=== PATIENT | male | born 1960 | race Caucasian/White ===

== ENCOUNTER 2023-08-17 09:21 | Emergency (ER) | payer BC ==
[2023-08-17 09:59] LABS: APPEARANCE,URINE SLIGHTLY CLOUDY (CLEAR); BASOPHILS ABSOLUTE AUTO 0.03 10^3/uL (0.00-0.50); BASOPHILS PERCENT AUTO 0.3 % (0-1); COLOR,URINE DARK YELLOW (YELLOW); EOSINOPHILS ABSOLUTE AUTO 0.24 10^3/uL (0.00-1.50); EOSINOPHILS PERCENT AUTO 2.3 % (0-6); GLUCOSE,URINE NEGATIVE (NEGATIVE); HEMATOCRIT 43.2 % (42.0-52.0); HEMOGLOBIN 15.3 g/dL (14.0-18.0); IMMATURE GRAN ABSOLUTE AUTO 0.09 10^3/uL (0.00-0.49); IMMATURE GRAN PERCENT AUTO 0.9 % (0.0-4.9); KETONES,URINE TRACE mg/dL (NEGATIVE); LEUKOCYTE ESTERASE,URINE NEGATIVE (NEGATIVE); LYMPHOCYTES PERCENT AUTO 15.4 % (24-44); MEAN CORPUSCULAR HEMOGLOBIN 33.8 pg (27.0-32.0); MEAN CORPUSCULAR HGB CONC 35.4 g/dL (32.0-36.0); MEAN CORPUSCULAR VOLUME 95.6 fL (83.0-97.0); MONOCYTES ABSOLUTE AUTO 0.55 10^3/uL (0.00-1.50); MONOCYTES PERCENT AUTO 5.3 % (0-10); NEUTROPHILS ABSOLUTE AUTO 7.86 x10^3/uL (1.80-8.00); NEUTROPHILS PERCENT AUTO 75.8 % (41-71); NITRITE,URINE NEGATIVE (NEGATIVE); OCCULT BLOOD,URINE NEGATIVE (NEGATIVE); PH,URINE 5.5 (4.5-8.0); PLATELET COUNT,PLT 102 10^3/uL (150-400); PROTEIN,URINE 30 mg/dL (NEGATIVE); RED BLOOD CELL COUNT 4.52 x10^6/uL (4.50-6.00); WHITE BLOOD CELL COUNT,WBC 10.4 10^3/uL (4.0-11.0)
[2023-08-17 10:08] LABS: BACTERIA,URINE NOT SEEN /HPF (NOT SEEN); BARBITURATES,URINE NEGATIVE (NEGATIVE); BENZODIAZEPINE,URINE NEGATIVE (NEGATIVE); BILIRUBIN,URINE MODERATE (NEGATIVE); MDMA (ECSTASY), URINE NEGATIVE (NEGATIVE); METHADONE,URINE NEGATIVE (NEGATIVE); METHAMPHETAMINES,URINE NEGATIVE (NEGATIVE); OPIATES,URINE NEGATIVE (NEGATIVE); PHENCYCLIDINE,URINE NEGATIVE (NEGATIVE); RBC,URINE 0-5 /HPF (0-5); SQUAMOUS EPITHELIAL CELLS,UR OCCASIONAL /HPF (NOT SEEN); TCA,URINE POSITIVE (NEGATIVE); WBC,URINE 0-5 /HPF (0-5)
[2023-08-17 10:09] LABS: AMPHETAMINES,URINE NEGATIVE (NEGATIVE); OXYCODONE,URINE NEGATIVE (NEGATIVE)
[2023-08-17 10:12] LABS: ALANINE AMINOTRANSFERASE,ALT 46 U/L (12-78); ALBUMIN 3.3 g/dL (3.4-5.0); ALKALINE PHOSPHATASE 80 U/L (46-116); ASPARTATE AMNIOTRANSFERASE,AST 54 U/L (15-37); BILIRUBIN TOTAL 1.4 mg/dL (0.0-1.0); BLOOD UREA NITROGEN,BUN 22 mg/dL (7-18); CALCIUM 8.9 mg/dL (8.4-10.1); CARBON DIOXIDE,CO2 25 mmol/L (21-32); CHLORIDE,CL 96 mEq/L (98-106); CREATININE 1.3 mg/dL (0.7-1.3); GLUCOSE RANDOM 112 mg/dL (75-99); PROTEIN TOTAL,TP 7.1 g/dL (6.4-8.2); SODIUM,NA 136 mEq/L (136-145)
[2023-08-17 10:14] LABS: ESTIMATED GFR 62 mL/min (>=60); ETHANOL BLOOD MEDICAL < 3 mg/dL (0-3); POTASSIUM,K 2.5 mEq/L (3.5-5.0)
[2023-08-17] MEDS: Potassium Chloride 20 MEQ Tab.ER PO ONE (11:03)
== END 2023-08-17 12:00 | disposition home or self-care (01) ==
LOC: CC.ED 09:21
DX: F10.951 Alcohol use, unspecified with alcohol-induced psychotic disorder with hallucinations (principal); F10.939 Alcohol use, unspecified with withdrawal, unspecified; E87.6 Hypokalemia; Z79.899 Other long term (current) drug therapy; Y90.9 Presence of alcohol in blood, level not specified
CPT/HCPCS: 36415; 71046; 80053; 80305; 80307; 81001; 83735; 85025; 86140; 99285; A9270

== ENCOUNTER 2023-08-26 19:28 | Observation (INO) | payer BC ==
[2023-08-26] MEDS: Sodium Chloride 0.9% 1,000 ML IV ONE (19:45)
[2023-08-26 20:01] LABS: BASOPHILS ABSOLUTE AUTO 0.14 10^3/uL (0.00-0.50); BASOPHILS PERCENT AUTO 0.9 % (0-1); EOSINOPHILS ABSOLUTE AUTO 0.25 10^3/uL (0.00-1.50); EOSINOPHILS PERCENT AUTO 1.7 % (0-6); HEMATOCRIT 24.9 % (42.0-52.0); HEMOGLOBIN 8.2 g/dL (14.0-18.0); IMMATURE GRAN ABSOLUTE AUTO 0.15 10^3/uL (0.00-0.49); LYMPHOCYTES ABSOLUTE AUTO 2.58 10^3/uL (0.60-5.00); LYMPHOCYTES PERCENT AUTO 17.2 % (24-44); MEAN CORPUSCULAR HGB CONC 32.9 g/dL (32.0-36.0); MEAN CORPUSCULAR VOLUME 103.3 fL (83.0-97.0); MONOCYTES ABSOLUTE AUTO 1.09 10^3/uL (0.00-1.50); MONOCYTES PERCENT AUTO 7.3 % (0-10); NEUTROPHILS ABSOLUTE AUTO 10.82 x10^3/uL (1.80-8.00); NEUTROPHILS PERCENT AUTO 71.9 % (41-71); PLATELET COUNT,PLT 567 10^3/uL (150-400); RED BLOOD CELL COUNT 2.41 x10^6/uL (4.50-6.00)
[2023-08-26 20:17] LABS: ALANINE AMINOTRANSFERASE,ALT 102 U/L (12-78); ALBUMIN 2.8 g/dL (3.4-5.0); ALKALINE PHOSPHATASE 56 U/L (46-116); ASPARTATE AMNIOTRANSFERASE,AST 51 U/L (15-37); BILIRUBIN TOTAL 0.2 mg/dL (0.0-1.0); BLOOD UREA NITROGEN,BUN 40 mg/dL (7-18); CALCIUM 8.4 mg/dL (8.4-10.1); CARBON DIOXIDE,CO2 22 mmol/L (21-32); CHLORIDE,CL 104 mEq/L (98-106); CREATINE KINASE,CK 46 U/L (35-232); CREATININE 1.8 mg/dL (0.7-1.3); EST CRCL DRUG DOSING (CG) 39.78 mL/min; ESTIMATED GFR 42 mL/min (>=60); GLUCOSE RANDOM 133 mg/dL (75-99); POTASSIUM,K 5.4 mEq/L (3.5-5.0); SODIUM,NA 138 mEq/L (136-145)
[2023-08-26 20:18] LABS: ETHANOL BLOOD MEDICAL < 3 mg/dL (0-3)
[2023-08-26 20:50] LABS: APPEARANCE,URINE CLEAR (CLEAR); BILIRUBIN,URINE NEGATIVE (NEGATIVE); COLOR,URINE YELLOW (YELLOW); GLUCOSE,URINE NEGATIVE (NEGATIVE); KETONES,URINE TRACE mg/dL (NEGATIVE); LEUKOCYTE ESTERASE,URINE TRACE (NEGATIVE); NITRITE,URINE NEGATIVE (NEGATIVE); OCCULT BLOOD,URINE NEGATIVE (NEGATIVE); PROTEIN,URINE NEGATIVE (NEGATIVE); UROBILINOGEN,URINE 0.2 EU/dL (0.2-1.0)
[2023-08-26 20:55] LABS: EPITHELIAL CELLS,URINE FEW /HPF (NOT SEEN); RBC,URINE 0-5 /HPF (0-5); WBC,URINE 0-5 /HPF (0-5)
[2023-08-26 20:56] LABS: BACTERIA,URINE NOT SEEN /HPF (NOT SEEN); GRANULAR CASTS,URINE FEW /LPF (NOT SEEN)
[2023-08-26] MEDS: Pantoprazole 40 MG Vial IVPUSH ONE (22:00)
[2023-08-26] MEDS: Sodium Chloride 0.9% 1,000 ML IV SCH (22:01)
[2023-08-26] MEDS ORDERED: Docusate Sodium 100 MG Cap PO PRN (22:27)
[2023-08-26] MEDS ORDERED: Ondansetron 4 MG Tab.DIS PO PRN (22:27)
[2023-08-26] MEDS ORDERED: Polyethylene Glycol 3350 Powder 17 GM Packet PO PRN (22:27)
[2023-08-26] MEDS ORDERED: Ondansetron 4 MG/2 ML SDV IV PRN (22:27)
[2023-08-26] MEDS: cefTRIAXone 2 GM Vial IVPUSH ONE (22:28)
[2023-08-26] MEDS: Temazepam 15 MG Cap PO PRN (22:45)
[2023-08-26] MEDS: Folic Acid 1 MG, Multivitamins 1 TAB, Thiamine 100 MG, Magnesium Oxide 400 MG PO SCH (23:58)
[2023-08-27 01:29] LABS: BASOPHILS ABSOLUTE AUTO 0.15 10^3/uL (0.00-0.50); EOSINOPHILS ABSOLUTE AUTO 0.42 10^3/uL (0.00-1.50); EOSINOPHILS PERCENT AUTO 2.8 % (0-6); IMMATURE GRAN ABSOLUTE AUTO 0.11 10^3/uL (0.00-0.49); IMMATURE GRAN PERCENT AUTO 0.7 % (0.0-4.9); LYMPHOCYTES ABSOLUTE AUTO 5.15 10^3/uL (0.60-5.00); LYMPHOCYTES PERCENT AUTO 33.9 % (24-44); MEAN CORPUSCULAR HEMOGLOBIN 34.5 pg (27.0-32.0); MEAN CORPUSCULAR VOLUME 104.8 fL (83.0-97.0); MONOCYTES ABSOLUTE AUTO 1.16 10^3/uL (0.00-1.50); MONOCYTES PERCENT AUTO 7.6 % (0-10); PLATELET COUNT,PLT 459 10^3/uL (150-400); RED BLOOD CELL COUNT 1.68 x10^6/uL (4.50-6.00); WHITE BLOOD CELL COUNT,WBC 15.2 10^3/uL (4.0-11.0)
[2023-08-27 01:34] LABS: HEMATOCRIT 17.6 % (42.0-52.0); HEMOGLOBIN 5.8 g/dL (14.0-18.0)
[2023-08-27] MEDS: Pantoprazole 40 MG in Sodium Chloride 0.9% 100 ML IV SCH (01:39)
[2023-08-27] MEDS ORDERED: Sodium Chloride 0.9% 250 ML ONE (02:40)
[2023-08-27] MEDS ORDERED: Sodium Chloride 0.9% 250 ML IV SCH (02:45)
[2023-08-27] MEDS ORDERED: Pantoprazole 40 MG Vial IVPUSH SCH (08:00)
[2023-08-27] MEDS ORDERED: Folic Acid 1 MG, Multivitamins 1 TAB, Thiamine 100 MG, Magnesium Oxide 400 MG PO SCH (08:00)
[2023-08-27] MEDS ORDERED: cefTRIAXone 1 GM Vial IVPUSH SCH ×2 (20:00→22:00)
== END 2023-08-27 04:06 ==
LOC: CC.ED 19:28 → CC.MS 21:47 → UNDOADMOB 21:48 → UNDODISOB 08-27 04:06
PROVIDERS: ADMIT Nurse Practitioner; ATTEND Nurse Practitioner
DX: N17.9 Acute kidney failure, unspecified (principal); D72.828 Other elevated white blood cell count; D53.9 Nutritional anemia, unspecified; E87.5 Hyperkalemia; R74.8 Abnormal levels of other serum enzymes; K21.9 Gastro-esophageal reflux disease without esophagitis; K92.2 Gastrointestinal hemorrhage, unspecified; Z20.822 Contact with and (suspected) exposure to COVID-19; Z79.899 Other long term (current) drug therapy
CPT/HCPCS: 36415; 36430; 71046; 80053; 80307; 81001; 82272; 82550; 83605; 83735; 84484; 85025; 86850; 86900; 86901; 86920; 86922; 87040; 93005; A9270-GY; C9113; G0378; J0696; J3490; J7030; P9016; U0002